=== PATIENT | female | born 1990 | race Caucasian/White ===

== ENCOUNTER 2020-11-27 03:13 | Emergency (ER) | payer BC ==
--- NOTE | 2020-11-27 05:41 | EDM.PDOC ---
ED HPI GENERAL MEDICAL PROBLEM - General Chief Complaint: Chest Pain Stated Complaint: HAS COVID/CHEST IS TIGHT Time Seen by Provider: 11/27/20 04:15 - History of Present Illness INITIAL COMMENTS - FREE TEXT/NARRATIVE: 30 year-old female presents the emergency room with chest pain. Patient awoke with this pain several hours ago. The patient is Covid positive she was diagnosed on Monday the now 10 days ago she had symptoms starting Monday the . She thought she was pretty much getting over this. Patient denies any other complaints at this time she is not having any GI symptoms no nausea vomiting or diarrhea. She is not really having any breathing difficulties no shortness of breath. At this time the chest pain for the most part has resolved and she is doing okay. 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: - Infectious Disease History Infectious Disease History: Reports: Novel Coronavirus Other Infectious Disease History: gonzales + 11/16/20 - Past Surgical History Female Surgical History: Reports: Section Social & Family History - Tobacco Use Tobacco Use Status *Q: Never Tobacco User - Caffeine Use Caffeine Use: Reports: Coffee - Recreational Drug Use Recreational Drug Use: No ED ROS GENERAL - Review of Systems Review Of Systems: See Below Constitutional: Reports: No Symptoms HEENT: Reports: No Symptoms Respiratory: Reports: No Symptoms Cardiovascular: Reports: Chest Pain Endocrine: Reports: No Symptoms GI/Abdominal: Reports: No Symptoms ED EXAM, GENERAL - Physical Exam Exam: See Below Exam Limited By: No Limitations General Appearance: Alert, No Apparent Distress, Obese Eye Exam: Bilateral Eye: Normal Inspection Ears: Normal External Exam, Normal Canal, Hearing Grossly Normal, Normal TMs Nose: Normal Inspection, Normal Mucosa, No Blood Throat/Mouth: Normal Inspection, Normal Lips, Normal Teeth, Normal Gums, Normal Oropharynx, Normal Voice, No Airway Compromise Head: Atraumatic, Normocephalic Neck: Normal Inspection, Supple, Non-Tender, Full Range of Motion. No: Lymphadenopathy (L), Lymphadenopathy (R) Respiratory/Chest: No Respiratory Distress, Lungs Clear, Normal Breath Sounds Cardiovascular: Regular Rate, Rhythm, No Edema, No Murmur GI/Abdominal: Normal Bowel Sounds, Soft, Non-Tender Back Exam: Normal Inspection, Full Range of Motion. No: CVA Tenderness (L), CVA Tenderness (R) Extremities: Normal Inspection Neurological: Alert, Oriented, Normal Cognition #1 Interpretation EKG Date: 11/27/20 Rhythm: Other (Probable sinus rhythm she has low voltage but P waves seem to march through her low voltage is probably secondary to her body habitus. I cannot entirely exclude a atrial rhythm but this seems unlikely) [place]: Other (Could be normal hard to determine) P-Wave: Present QRS: Other (Low voltage in all leads) ST-T: Normal QT: Normal Comparison: NA - No Prior EKG EKG Interpretation Comments: Abnormal EKG Course - Vital Signs Last Recorded V/S: Last Vital Signs Temp 35.8 C L 11/27/20 03:25 Pulse 68 11/27/20 03:25 Resp 20 11/27/20 03:25 BP 95/59 L 11/27/20 03:25 Pulse Ox 97 11/27/20 03:25 - Orders/Labs/Meds Labs: Laboratory Tests 11/27/20 11/27/20 11/27/20 Range/Units 04:40 04:40 04:40 WBC 10.36 H (3.98-10.04) K/mm3 RBC 5.02 (3.98-5.22) M/mm3 Hgb 14.3 (11.2-15.7) gm/dl Hct 42.1 (34.1-44.9) % MCV 83.9 (79.4-94.8) fl MCH 28.5 (25.6-32.2) pg MCHC 34.0 (32.2-35.5) g/dl RDW Std Deviation 40.3 (36.4-46.3) fL Plt Count 260 (182-369) K/mm3 MPV 10.6 (9.4-12.3) fl Neut % (Auto) 76.9 H (34.0-71.1) % Lymph % (Auto) 13.6 L (19.3-51.7) % [place] % (Auto) 8.2 (4.7-12.5) % Eos % (Auto) 0.8 (0.7-5.8) Baso % (Auto) 0.2 (0.1-1.2) % Neut # (Auto) 7.97 H (1.56-6.13) K/mm3 Lymph # (Auto) 1.41 (1.18-3.74) K/mm3 [place] # (Auto) 0.85 H (0.24-0.36) K/mm3 Eos # (Auto) 0.08 (0.04-0.36) K/mm3 Baso # (Auto) 0.02 (0.01-0.08) K/mm3 Manual Slide Review Normal smear D-Dimer, Quantitative 0.44 (0.19-0.50) mg/L Sodium 142 (136-145) mEq/L Potassium 4.6 (3.5-5.1) mEq/L Chloride 105 (98-107) mEq/L Carbon Dioxide 27 (21-32) mEq/L Anion Gap 14.6 (5-15) BUN 15 (7-18) mg/dL Creatinine 1.0 (0.55-1.02) mg/dL Est Cr Clr Drug Dosing 68.05 mL/min Estimated GFR (MDRD) > 60 (>60) mL/min BUN/Creatinine Ratio 15.0 (14-18) Glucose 118 H (70-99) mg/dL Calcium 8.5 (8.5-10.1) mg/dL Ferritin (8-252) ng/ml Total Bilirubin 0.9 (0.2-1.0) mg/dL AST 95 H (15-37) U/L ALT 126 H (14-59) U/L Alkaline Phosphatase 87 (46-116) U/L Lactate Dehydrogenase 300 H (81-234) U/L Troponin I < 0.017 (0.00-0.056) ng/mL C-Reactive Protein (<1.0) mg/dL Total Protein 6.8 (6.4-8.2) g/dl Albumin 3.0 L (3.4-5.0) g/dl Globulin 3.8 gm/dL Albumin/Globulin Ratio 0.8 L (1-2) 09/24/21 09/24/21 Range/Units 04:40 04:40 WBC (3.98-10.04) K/mm3 RBC (3.98-5.22) M/mm3 Hgb (11.2-15.7) gm/dl Hct (34.1-44.9) % MCV (79.4-94.8) fl MCH (25.6-32.2) pg MCHC (32.2-35.5) g/dl RDW Std Deviation (36.4-46.3) fL Plt Count (182-369) K/mm3 MPV (9.4-12.3) fl Neut % (Auto) (34.0-71.1) % Lymph % (Auto) (19.3-51.7) % [place] % (Auto) (4.7-12.5) % Eos % (Auto) (0.7-5.8) Baso % (Auto) (0.1-1.2) % Neut # (Auto) (1.56-6.13) K/mm3 Lymph # (Auto) (1.18-3.74) K/mm3 [place] # (Auto) (0.24-0.36) K/mm3 Eos # (Auto) (0.04-0.36) K/mm3 Baso # (Auto) (0.01-0.08) K/mm3 Manual Slide Review D-Dimer, Quantitative (0.19-0.50) mg/L Sodium (136-145) mEq/L Potassium (3.5-5.1) mEq/L Chloride (98-107) mEq/L Carbon Dioxide (21-32) mEq/L Anion Gap (5-15) BUN (7-18) mg/dL Creatinine (0.55-1.02) mg/dL Est Cr Clr Drug Dosing mL/min Estimated GFR (MDRD) (>60) mL/min BUN/Creatinine Ratio (14-18) Glucose (70-99) mg/dL Calcium (8.5-10.1) mg/dL Ferritin 613 H (8-252) ng/ml Total Bilirubin (0.2-1.0) mg/dL AST (15-37) U/L ALT (14-59) U/L Alkaline Phosphatase (46-116) U/L Lactate Dehydrogenase (81-234) U/L Troponin I (0.00-0.056) ng/mL C-Reactive Protein 3.0 H* (<1.0) mg/dL Total Protein (6.4-8.2) g/dl Albumin (3.4-5.0) g/dl Globulin gm/dL Albumin/Globulin Ratio (1-2) - Re-Assessments/Exams Free Text/Narrative Re-Assessment/Exam: 11/27/20 05:46 Labs reviewed still waiting on the LDH troponin is entirely normal as is D- dimer. C-reactive protein is still up. We did discuss the pros and cons of Regeneron and she would like to hold off on it at this point. 11/27/20 06:30 Lab still has not reported the LDH we will go ahead and discharge at this time Departure - Departure Time of Disposition: 06:31 Disposition: Home, Self-Care 01 Clinical Impression: Chest pain, COVID-19 - Discharge Information Instructions: COVID-19, Chest Wall Pain Referrals: PCP,None [Primary Care Provider] - Forms: ED Department Discharge Additional Instructions: Return to the emergency room with any questions problems or worsening symptoms. Follow-up in the clinic as needed.
--- NOTE | 2020-11-27 07:22 | CR ---
Chest: Frontal view of the chest was obtained. Comparison: No prior chest imaging is available. Slight density is noted within the right upper lung. Left lung is clear. Heart size and mediastinum are normal. Bony structures are unremarkable. Impression: 1. Mild increased density within the right upper chest most likely representing a small area of COVID pneumonia. 2. No other acute abnormality is appreciated. Diagnostic code #3
== END 2020-11-27 06:58 | disposition home or self-care (01) ==
LOC: JD.ED 03:13
DX: R07.9 Chest pain, unspecified (principal); U07.1 COVID-19; Z88.0 Allergy status to penicillin; Z86.16 Personal history of COVID-19
CPT/HCPCS: 36415; 71045; 71045-26; 80053; 82728; 83615; 84484; 85025; 85379; 86140; 99285-25